=== PATIENT | female | born 1995 ===

== ENCOUNTER 2016-09-20 12:39 | Inpatient (IN) ==
[2016-09-20] MEDS ORDERED: BUPIVACAINE 0.25% /EPI 10 ML VIAL ONE (13:37)
[2016-09-20] MEDS ORDERED: LIDOCAINE 1%/EPI INJ 20 ML VIAL ONE (13:37)
[2016-09-20] MEDS ORDERED: TISSUE ADHESIVE 1 EACH APPLICATOR TOP ONE (13:37)
--- NOTE | 2016-09-20 13:42 | General Surg History&Physical ---
Assessment and Plan - Time spent with patient Time spent with patient: Greater than 30 minutes (1) Acute appendicitis Status: Acute Assessment and plan: 20-year-old female with no medical or surgical history admitted by Dr. Garcia with an acute appendicitis per CT scan and physical exam. Patient will be taken to the OR today for laparoscopic appendectomy. Preop antibiotics have been ordered, pain and nausea control. Dr. Garcia has seen and examined patient. Current Visit: Yes History of Present Illness Chief complaint: Abdominal pain History of present illness: Ms. Gasca is a 20 year old female with no medical history or surgical history transferred from [facility] with abdominal pain, nausea and vomiting. Patient states that she had right lower quadrant abdominal pain that started about midnight last night. She got up and ate something and try to go back to bed but could not get comfortable. She states is associated with several bouts of nausea and vomiting. She denies headache, fever, chest pain, shortness of breath, constipation or diarrhea, or lower extremity edema. She has had chills and malaise as well. She rates the pain an 8/10 right now. Upon exam she is mildly uncomfortable due to pain. Abdomen is soft and extremely tender to palpation in the right lower quadrant with no peritoneal signs. Paperwork from the [facility] show a mildly elevated white count of 12.8, afebrile vital signs stable, CT scan showing a dilated appendix with stranding indicative of acute appendicitis. Patient's case was discussed with Dr. Betancourt the ED physician and Dr. Garcia the surgeon and it was agreed patient would be admitted for further evaluation and treatment. Patient has no home medicines and she is a full code. Allergies Allergy/AdvReac Type Severity Reaction Status Date / Time No Known Allergies Allergy Unverified 09/20/16 12:45 Medical,Surgical,& Family Hx - Medical History Respiratory: No history of: Asthma Reproductive: No history of: Abnormal Pap Smear - Surgical History HEENT Surgeries: Patient denies: Tonsilectomy & Adenoidectomy Abdominal Surgeries: Patient denies: Abdominal Surgery - Family History Family History: Reports;: Family Diabetes - Social History Smoking Status: Never smoker Frequency of Alcohol Use: None Type of Drug Use: Marijuana Marital Status: Single Lives With:: Parent Functional capacity: independent ambulation Exam - Constitutional Vitals: Period Temp Pulse Resp BP Sys/Morgan Pulse Ox Last 24 Hr 97.5 F-97.5 F 75-87 18-20 99-99/37-37 98 Exam: Constitutional System: Mild distress. No tremulousness. Head: Normocephalic, atraumatic. Ears, Nose and Throat System: No evidence of Otitis or Mastoiditis. No epistaxis or discharge Eyes System: Pupils equal, round, and reactive. Extraocular muscles intact. Neck: Supple, without adenopathy, No jugular venous distention. No thyromegaly, neck mass, or prior surgery apparent. Respiratory System: Chest clear to auscultation. Cardiovascular System: Heart with regular rate and rhythm. No murmur. GI System: Abdomen soft, tender to palpation right lower quadrant, no peritoneal signs. Normo active bowel sounds present. Musculoskeletal System: limbs with no pedal edema. Full distal pulses. Neurological System: No discernable sensory deficit. No aphasia Psychiatric System: Conversation is rational Review of systems: A complete 10 system review of systems was obtained and pertinent positives and negatives per HPI Results - Labs Lab Results: I have reviewed the past 24 hour labs - Diagnostic Findings Procedure: CT Abdomen and Pelvis: report reviewed by me (Dilated appendix with inflammatory stranding)
[2016-09-20] MEDS ORDERED: FAMOTIDINE 20 MG TABLET PO STA (13:53)
[2016-09-20] MEDS: LACTATED RINGERS 1,000 ML IV SCH ×2 (14:04→18:17)
[2016-09-20] MEDS ORDERED: ONDANSETRON 4 MG/2 ML VIAL ONE ×2 (14:20→15:46)
[2016-09-20] MEDS ORDERED: PROPOFOL 200 MG/20 ML VIAL IV ONE (14:20)
[2016-09-20] MEDS ORDERED: GLYCOPYRROLATE 0.4 MG/2 ML VIAL ONE (14:20)
[2016-09-20] MEDS ORDERED: KETOROLAC 30 MG/1 ML VIAL ONE (14:20)
[2016-09-20] MEDS ORDERED: SUCCINYLCHOLINE 200 MG/10 ML VIAL ONE (14:20)
[2016-09-20] MEDS ORDERED: ROCURONIUM 100 MG/10 ML VIAL IV ONE (14:20)
[2016-09-20] MEDS ORDERED: LIDOCAINE 2% 5 ML VIAL ONE (14:20)
[2016-09-20] MEDS ORDERED: DEXAMETHASONE 10 MG/1 ML VIAL ONE (14:20)
[2016-09-20] MEDS ORDERED: PHENYLEPHRINE 1 MG/10 ML SYRINGE IV ONE (14:20)
[2016-09-20] MEDS ORDERED: NEOSTIGMINE 10 MG/10 ML VIAL ONE (14:20)
--- NOTE | 2016-09-20 14:38 | Emergency Department Note ---
Tito Elkins Brooke, am scribing for, and in the presence of, Dakotah Betancourt MD 13:06. Serafin Elkins Phillip K, MD, personally performed the services described in this documentation, ascribed by Mirtha Francis in my presence, and it is both accurate and complete 437 . Arrival - Arrival Chief Complaint: Abdominal / Flank Pain Stated Complaint: acute appendicitis ED Nursing Triage Note: pt started having stomach pain without fever, co nausea. Mode of Arrival: Stretcher Limitations: No Limitations Source: Patient, EMS, RN Notes Reviewed Time Seen by Provider: 09/20/16 12:53 - History of Present Illness HPI Narrative: Patient is a 20 year old female brought into the ED by EMS from with c/o acute appendicitis. Patient says her RLQ abdominal pain started around midnight, last night. She says the pain is worsened with movement. She received Morphine at . She also complains of nausea and vomiting and says she has vomited twice. She does not have an appetite. She says she felt okay yesterday. Her last bowel movement was yesterday and it was normal. Her LNMP ended yesterday. She has not had anything to eat or drink since midnight. She has no medical problems. Onset (ago): minute(s) (13) Allergies/Adverse Reactions: Allergies Allergy/AdvReac Type Severity Reaction Status Date / Time No Known Allergies Allergy Unverified 09/20/16 12:45 Home Medications: Home Medications Medication Instructions Recorded Confirmed Type No Known Home Medications [No 09/20/16 09/20/16 History Known Home Medications] Review of System - Review of System 12 point system: reviewed and no additional remarkable complaints except as stated - Review of System Constitutional: Absent: fever Respiratory: Absent: respiratory distress Gastrointestinal: Present: abdominal pain (RLQ), nausea, vomiting (2x) Skin: Absent: rash Medical,Surgical,& Family Hx - Social History Smoking Status: Never smoker Frequency of Alcohol Use: None Type of Drug Use: None Exam Vital Signs: Vital Signs Temperature 97.5 F L 09/20/16 12:46 Pulse Rate 87 09/20/16 12:51 Respiratory Rate 18 09/20/16 12:51 Blood Pressure 99/37 09/20/16 12:51 O2 Sat by Pulse Oximetry 98 09/20/16 12:40 - General General appearance: alert, in no apparent distress - Head Head exam: Present: atraumatic, normocephalic - Eye Eye exam: Present: normal appearance, PERRL, EOMI - ENT ENT exam: Present: normal exam - Neck Neck exam: Present: normal inspection - Chest Chest inspection: Present: normal inspection, symmetric chest wall rise - Respiratory Respiratory exam: Present: normal lung sounds bilaterally - Cardiovascular Cardiovascular exam: Present: regular rate, normal rhythm, normal heart sounds - Abdominal Exam Abdominal exam: Present: soft, tenderness (Tenderness to the RLQ to direct palpation), normal bowel sounds. Absent: distention - Extremities Exam Extremities exam: Present: normal inspection - Back Exam Back exam: Present: normal inspection - Neurological Exam Neurological exam: Present: alert, oriented X3 - Psychiatric Psychiatric exam: Present: normal affect, normal mood - Skin Skin exam: Present: warm, dry, intact, normal color Course Course Narrative: Patient discussed with the physician sourcing assistant for the surgeon Dr. Gay. Results - Labs Lab Results: I have reviewed the patients labs (I reviewed the labs from .) - Diagnostic Findings Procedure: CT Abdomen and Pelvis: report reviewed by me (CT abdomen reveals acute appendicitis) Disposition Clinical Impression: Acute appendicitis Case discussed with: patient Condition: Guarded
--- NOTE | 2016-09-20 15:15 | Operative Note ---
Date of procedure: 09/20/16 Pre-op diagnosis: Acute appendicitis Post-op diagnosis: same Procedure: Procedure performed: Laparoscopic appendectomy next Procedure in detail: After informed consent was obtained, patient taken operating suite lies upon the operating table. A after general anesthesia induced the abdomen was prepped and draped in usual sterile fashion. After procedural pause local anesthetic and strength skin and subcutaneous tissue above the umbilicus in the midline. Incision my dissection carried down through skin and soft tissue. The fascia grasped with Marie's and elevated. Fascial incision was made. Abdominal cavity was entered bluntly. Finger sweep revealed. No adhesions. Black trocar placed under direct visualization. Pneumoperitoneum achieved. The camera inserted and bowel mesentery inspected found to be free of any violation. Next patient was placed in Trendelenburg position rotated to the left. 5 mm trochars placed in the suprapubic left lower quadrant under visualization. Can remove to the left lower quadrant. The right lower quadrant the appendix was identified. It was mildly suppurative. It was grasped and elevated. There were changes consistent with acute appendicitis. A window was created at the base of the mesentery and the appendiceal base was transected using ELY stapling device with vascular load. Mesoappendix transected in the same fashion. Appendix placed Endo Catch sac removed to the Black trocar site. Pneumoperitoneum reachieved. T right lower quadrant was irrigated and suctioned. There was excellent hemostasis. The staple line inspected and found to be intact no leakage of sanguinous or succus- appearing fluid. Irrigant remained clear was all suctioned. Trochars were removed his abdomen desufflated. Fascia at the Black trocar site closed using 0 Vicryl [id number] interrupted suture. Wounds thoroughly irrigated and suctioned. Incision was closed with micki. Sterile dressings applied. Patient explained taken recovery in stable condition. All lap and needle counts correct at the end of the case per Anesthesia: ALEXEY Surgeon / Physician: Bora Garcia Estimated blood loss: other (Less than 10 cc) Specimens: other (Appendix) Condition: stable Disposition: PACU Discharge Plan - Discharge Medications No Action No Known Home Medications [No Known Home Medications] - Follow Up or Referral - Forms/Instructions
[2016-09-20] MEDS ORDERED: ACETAMINOPHEN 325 MG TABLET PO PRN (15:25)
[2016-09-20] MEDS ORDERED: BISACODYL 5 MG TABLET PO PRN (15:25)
[2016-09-20] MEDS ORDERED: KETOROLAC 15 MG/1 ML VIAL IV PRN (15:25)
[2016-09-20] MEDS ORDERED: ONDANSETRON 4 MG/2 ML VIAL IV PRN ×2 (15:25→15:43)
--- NOTE | 2016-09-20 15:37 | Anesthesia Post-Op ---
Anesthesia Post OP - Post Ansesthetic Evaluation Patient seen in post op: Yes Resp: within normal limits CV: within normal limits Mental: within normal limits Temp: within normal limits [id number]: within normal limits Nausea and Vomiting: within normal limits Pain: within normal limits
[2016-09-20] MEDS ORDERED: SEVOFLURANE 1 UNIT/15 MINUTE INH ONE (15:43)
[2016-09-20] MEDS ORDERED: fentaNYL 100 MCG/2 ML VIAL ONE (15:43)
[2016-09-20] MEDS ORDERED: HYDROmorphone 2 MG/1 ML VIAL IV PRN (15:43)
[2016-09-20] MEDS ORDERED: ACETAMINOPHEN 1,000 MG/100 ML VIAL IV ONE (15:44)
[2016-09-20] MEDS ORDERED: LACTATED RINGERS 1,000 ML IV ONE (15:44)
[2016-09-20] MEDS ORDERED: MIDAZOLAM 2 MG/2 ML VIAL ONE (15:44)
[2016-09-20] MEDS: HYDROmorphone 2 MG/1 ML VIAL IV PRN ×3 (15:45→23:12)
[2016-09-20] MEDS ORDERED: HYDROmorphone 2 MG/1 ML VIAL ONE (15:45)
[2016-09-20] MEDS: PANTOPRAZOLE 40 MG VIAL IV SCH (18:23)
[2016-09-21] MEDS: LACTATED RINGERS 1,000 ML IV SCH ×2 (02:37→09:48)
[2016-09-21 06:48] LABS: Hematocrit 31.5 VOL% (35.7-47.0); Hemoglobin 9.5 GM/DL (12.0-16.0); Immature Granulocytes % 0.3 %; Immature Granulocytes Absolute 0.03 #; Lymphocytes # 1.8 10*3/uL (1.4-4.0); Lymphocytes % 19.6 % (21.3-54.2); Mean Corpuscular HGB Conc 30.2 GM/DL (32-36); Mean Corpuscular Hemoglobin 21 PG (27-34); Mean Corpuscular Volume 68.2 FL (87-102); Mean Platelet Volume 11.5 FL (9.6-12.0); Monocytes # 0.6 10*3/uL (0.11-0.8); Monocytes % 6.5 % (1.7-12.7); Neutrophils # 6.7 10*3/uL (1.4-7.4); Neutrophils % 73.6 % (38.7-73.9); Platelet Count 373 T/CUMM (130-400); Red Blood Count 4.62 MC/CUMM (3.8-5.5); Red Cell Distribution Width 17.9 % (9.3-17.3)
[2016-09-21] MEDS: PANTOPRAZOLE 40 MG VIAL IV SCH (09:42)
--- NOTE | 2016-09-21 10:14 | Discharge Summary ---
Hospital Course - Hospital Course Hospital Course: Ms. Gasca is a 20-year-old female with no reported medical history admitted by Dr. Garcia as a transfer from [facility] on 09/20 with acute appendicitis. Patient had an elevated white count, low-grade fever, and CT scan suggested appendicitis. She was taken to the operating room on 09/20/2016 where he performed a laparoscopic appendectomy. Postoperatively patient is tolerating a diet but she is not getting up and moving around. Will get her up in the chair and walk the halls today and she will be discharged home later this afternoon. Her abdomen is soft and appropriately tender and her incisions look good. DC home with pain medicine and Zofran as needed for nausea and a 2-week follow-up with Dr. Garcia. Complete discharge instructions were given. Care coordination, chart review completed discharge paperwork took approximately 31 minutes. - Time spent with patient Time with patient DS: Greater than 30 minutes Diagnosis - Discharge Diagnosis (1) Acute appendicitis Status: Resolved Specialty Discharge - Follow Up or Referrals Follow up with: Bora Garcia MD [Physician] - 10/05/16 9:30 am (2weeks ) Discharge Plan - Discharge Data Disposition: Discharge Diet: advance to your usual diet Activity: no lifting Hygiene: may shower Driving: other (No driving if taking pain medications) Contact your physician if you experience:: fever over 101, Nausea/Vomiting Wound / Dressing Care Instructions: Okay to shower daily with mild soap and water, pat dry, okay to leave open to air or cover as needed with Band-Aids - Discharge Medications New HYDROcodone/ACETAMIN 7.5-325 [[place] 7.5-325] 1 tablet PO Q4H PRN #30 tablet PRN Reason: Pain Moderate (4-7) - Follow Up or Referral Follow Up: Bora Garcia MD [Physician] - 10/05/16 9:30 am (2weeks ) - Forms/Instructions Instructions: Laparoscopic Appendectomy (DC) Exam - Constitutional Vitals: Period Temp Pulse Resp BP Sys/Morgan Pulse Ox Last 24 Hr 97.5 F-98.5 F 49-87 16-20 99-125/37-63 95-100 Exam: 20-year-old female, no acute distress, alert and oriented Chest clear CV regular rate and rhythm Abdomen soft, appropriately tender, incisions look good Extremities no edema Discharge Results Labs on day of discharge: Labs from last 24 hours 09/21/16 05:33 WBC 9.0 RBC 4.62 Hgb 9.5 L Hct 31.5 L MCV 68.2 L MCH 21 L MCHC 30.2 L RDW 17.9 H Plt Count 373 MPV 11.5 Neut % (Auto) 73.6 Lymph % (Auto) 19.6 L [place] % (Auto) 6.5 Eos % (Auto) 0.0 Baso % (Auto) 0.0 Neut # (Auto) 6.7 Lymph # (Auto) 1.8 [place] # (Auto) 0.6 Eos # (Auto) 0.0 Baso # (Auto) 0.0 Immature Gran % 0.3 Nucleated RBC % 0.0 Immature Gran # 0.03 Nucleated RBCs # 0.00 DS: Provider Date of admission: 09/20/16 13:44 Primary care physician: Jimmy York MD Attending physician on admission: Bora Garcia MD Consults: 09/20/16 13:44 Consult to Anesthesiology [CONS] Routine Consulting Provider: Reason for Anesthesiology: Pre-op Clearance Discharging clinician: JEEVAN Flynn Expected date of discharge: 09/21/16
[2016-09-21 10:53] VITALS: BP 125/44
--- NOTE | 2016-09-23 11:21 | Pathology Report from [facility] ---
[facility] [place] ACCESSION # : [id number] PATIENT NAME : Cedrick Acosta ORDERING DR : Bora Garcia MD CLINICAL HX: Appendicitis POST-OP DX: Same SPECIMEN INFO: Appendix GROSS DESCRIPTION: Received in formalin labeled CEDRICK ACOSTA is an appendix measuring 6.8 x 0.8 cm. The serosa is smooth and pink vargas. Sectioning reveals a patent hyperemic lumen with no fecaliths or perforations seen. Instruction[employer] Facilitator sections are submitted in one cassette. DIAGNOSIS FOR CEDRICK ACOSTA: APPENDIX, APPENDECTOMY: Acute appendicitis. COLLECTED DATE: 09/21/2016 [facility] REPORT DATE: 09/22/2016 ELECTRONICALLY SIGNED BY: Laura Anthony M.D. 09/22/2016 - 9:59:40 [facility]ITAL[facility]jorie
== END 2016-09-21 14:45 | disposition home or self-care (01) | DRG 343 ==
LOC: N.ED 12:39 → N.EDINP 13:44 → N.3E 13:47 → N.ED 13:50 → N.3E 15:12
PROVIDERS: ADMIT Surgery; ATTEND Surgery